=== PATIENT | female | born 1985 | race Caucasian/White ===

== ENCOUNTER → 2017-02-26 | Outpatient (CLI) | payer OTHER ==
[~2017-02-26] MED LIST: PRENTAB26 PO
[2017-02-26 11:11] LABS: MANUAL MICROSCOPIC REQUIRED? NO; REVIEW REQ? NO; URINE APPEARANCE CLOUDY (CLEAR); URINE BILIRUBIN NEG (NEG); URINE COLOR YELLOW; URINE EPITHELIAL CELL AUTO >30 /lpf (0-5); URINE NITRITE POS (NEG); URINE SPECIFIC GRAVITY 1.019 (1.000-1.030); UROBILINOGEN NEG (NEG)
== END | disposition home or self-care (01) ==
LOC: C.LABSPEC 10:42
PROVIDERS: ATTEND Obstetrics & Gynecology
DX: O09.291 Supervision of pregnancy with other poor reproductive or obstetric history, first trimester (principal); Z3A.00 Weeks of gestation of pregnancy not specified

== ENCOUNTER → 2017-02-27 | Outpatient (CLI) | payer OTHER ==
[2017-02-27 12:40] LABS: BASO % 0.3 %; BASO ABS # 0.02 K/uL (0-0.2); COMPLETE YES; EOS % 0.4 %; HEMATOCRIT 37.4 % (37-47); IG% 0.3 %; LYMPH % 20.2 %; LYMPH ABS # 1.58 K/uL (1.2-3.4); MEAN CELL VOLUME 88.2 fL (80-100); MEAN CORPUSCULAR HEMOGLOBIN 30.9 pg (25-34); MEAN PLATELET VOLUME 10.2 fL (7.4-10.4); NEUT % 70.8 %; PLATELET COUNT 267 K/uL (130-400); RED BLOOD COUNT 4.24 M/uL (4.2-5.4); WHITE BLOOD COUNT 7.84 K/uL (4.8-10.8)
[2017-03-04 00:44] LABS: CHLAMYDIA TRACH RNA*** NOT DETECTED (NOT DETECTED); GC (NEIS GONORRHOEAE)RNA** NOT DETECTED (NOT DETECTED)
== END | disposition home or self-care (01) ==
LOC: C.LAB1850 10:50
PROVIDERS: ATTEND Obstetrics & Gynecology
DX: O09.291 Supervision of pregnancy with other poor reproductive or obstetric history, first trimester (principal)

== ENCOUNTER → 2017-02-27 | Outpatient (CLI) | payer OTHER | END | disposition home or self-care (01) | LOC: C.PAPS 14:40 | PROVIDERS: ATTEND Obstetrics & Gynecology | DX: O09.291 Supervision of pregnancy with other poor reproductive or obstetric history, first trimester (principal) ==

== ENCOUNTER → 2017-03-19 | Outpatient (CLI) | payer OTHER | END | disposition home or self-care (01) | LOC: C.LAB1850 12:14 | PROVIDERS: ATTEND Obstetrics & Gynecology | DX: O23.41 Unspecified infection of urinary tract in pregnancy, first trimester (principal); Z3A.00 Weeks of gestation of pregnancy not specified ==

== ENCOUNTER → 2017-04-23 | Outpatient (CLI) | payer OTHER ==
[2017-04-23 14:07] LABS: GTGD 50 Grams
== END | disposition home or self-care (01) ==
LOC: C.LAB1850 12:06
PROVIDERS: ATTEND Obstetrics & Gynecology
DX: O09.292 Supervision of pregnancy with other poor reproductive or obstetric history, second trimester (principal)

== ENCOUNTER → 2017-07-23 | Outpatient (CLI) | payer OTHER ==
[2017-07-23 13:09] LABS: HEMOGLOBIN 10.6 g/dL (12.0-16.0)
== END | disposition home or self-care (01) ==
LOC: C.LAB1850 11:44
PROVIDERS: ATTEND Obstetrics & Gynecology
DX: O09.293 Supervision of pregnancy with other poor reproductive or obstetric history, third trimester (principal)

== ENCOUNTER → 2017-08-07 | Outpatient (CLI) | payer OTHER | END | disposition home or self-care (01) | LOC: C.LAB1850 07:05 | PROVIDERS: ATTEND Obstetrics & Gynecology | DX: O28.1 Abnormal biochemical finding on antenatal screening of mother (principal) ==

== ENCOUNTER → 2017-09-18 | Outpatient (CLI) | payer OTHER | END | disposition home or self-care (01) | LOC: C.LABSPEC 11:17 | PROVIDERS: ATTEND Obstetrics & Gynecology | DX: O09.293 Supervision of pregnancy with other poor reproductive or obstetric history, third trimester (principal); Z3A.00 Weeks of gestation of pregnancy not specified ==

== ENCOUNTER 2017-09-30 20:45 | Inpatient (IN) | payer OTHER ==
[~2017-09-30] VITALS: Ht 162.6 cm; Wt 102.1 kg
[2017-09-30] MEDS ORDERED: LACTATED RINGER'S 1000ML 1,000 ML IV PRN (21:03)
[2017-09-30 21:18] VITALS: Ht 162.6 cm; Wt 102.1 kg
[2017-09-30] MEDS ORDERED: EpHEDrine SULFATE INJ 50 MG/ML AMP ONE (21:21)
[2017-09-30] MEDS ORDERED: BUPIVACAINE 0.25% 30 ML VIAL ONE (21:21)
[2017-09-30] MEDS ORDERED: FENTANYL CITRATE INJ 50 MCG/1 ML 2 ML VIAL ONE (21:21)
[2017-09-30] MEDS ORDERED: FENTANYL 2MCG/ML ROPIV 1.25MG/ML 100ML BAG ONE (21:22)
[2017-09-30 21:31] LABS: HEMATOCRIT 31.5 % (37-47); HEMOGLOBIN 10.8 g/dL (12.0-16.0); MEAN CELL VOLUME 84.7 fL (80-100); MEAN CORPUSCULAR HGB CONC 34.3 g/dl (32-36); MEAN PLATELET VOLUME 10.8 fL (7.4-10.4); PLATELET COUNT 196 K/uL (130-400); RED CELL DISTRIBUTION WIDTH CV 13.5 % (11.5-14.5); RED CELL DISTRIBUTION WIDTH SD 41.1 fL (36.4-46.3); WHITE BLOOD COUNT 11.97 K/uL (4.8-10.8)
[2017-09-30] MEDS: LACTATED RINGER'S 1000ML 1,000 ML IV SCH ×2 (21:40→22:45)
[2017-09-30] MEDS ORDERED: LACTATED RINGER'S 1000ML 500 ML IV PRN (23:15)
[2017-09-30] MEDS ORDERED: FENTANYL 2MCG/ML ROPIV 1.25MG/ML 100ML BAG EPI PRN (23:15)
[2017-09-30] MEDS ORDERED: EpHEDrine SULFATE INJ 50 MG/ML AMP IV PRN (23:15)
[2017-09-30] MEDS ORDERED: NALOXONE HCL INJ 1 MG in SODIUM CHLORIDE 0.9% 1000ML 1,000 ML IV PRN (23:15)
[2017-09-30] MEDS ORDERED: NALBUPHINE HCL INJ 10 MG/ML AMP IV PRN (23:15)
[2017-09-30] MEDS ORDERED: DiphenhydrAMINE HCL 50 MG/ML VIAL IV PRN (23:15)
[2017-09-30] MEDS ORDERED: NALOXONE HCL INJ 0.4 MG/1 ML VIAL/CARP IV PRN (23:15)
[2017-09-30] MEDS ORDERED: ONDANSETRON INJ 2 MG/ML 2 ML VIAL IV PRN (23:15)
[2017-10-01] MEDS ORDERED: OXYTOCIN 30 UNITS/500ML NSS IV ONE (02:13)
[2017-10-01] MEDS ORDERED: HYDROCORTISONE ACETATE 25 MG SUPP PR PRN (03:00)
[2017-10-01] MEDS ORDERED: OXYTOCIN 30 UNITS/500ML NSS IV PRN (03:00)
[2017-10-01] MEDS ORDERED: OXYCODONE/ACETAMINOPHEN 5-325 TAB PO PRN (03:00)
[2017-10-01] MEDS ORDERED: BENZOCAINE 20% AER SPR 82.5 GM CAN EXT PRN (03:00)
[2017-10-01] MEDS ORDERED: DIPHTHERIA/TETANUS/PERTUSSIS 0.5 ML SYR/VIAL IM. ONE (03:00)
[2017-10-01] MEDS ORDERED: SUPERCREAM 0.870 % 15GM JAR EXT PRN (03:00)
[2017-10-01] MEDS ORDERED: ACETAMINOPHEN/CODEINE 300/30MG TAB PO PRN ×2 (03:00)
[2017-10-01] MEDS ORDERED: ACETAMINOPHEN 325 MG TAB PO PRN (03:00)
[2017-10-01] MEDS ORDERED: LANOLIN OINT EXT PRN (03:00)
--- NOTE | 2017-10-01 03:35 | Anesthesia Procedure Note ---
Anesthesia Epidural Removal Nt Date & Time October 01, 2017 at 03:34 Vital Signs Pain Intensity: 2 Notes Mental Status: alert / awake / arousable, participated in evaluation Nausea / Vomiting: adequately controlled Pain: adequately controlled Airway Patency, RR, SpO2: stable & adequate BP & HR: stable & adequate Hydration State: stable & adequate Neuraxial Anesthesia: was administered Anesthetic Complications: no major complications apparent, pt satisfied with anesthetic care Epidural: removed without complications, with tip intact
[2017-10-01 05:20] VITALS: BP 141/81; PULSE 90; TEMP 36.8; O2SAT 99
[2017-10-01] MEDS: IBUPROFEN 600 MG TAB PO PRN ×3 (05:27→17:41)
--- NOTE | 2017-10-01 06:04 | DELIVERY SUMMARY ---
DATE OF OPERATION: 10/01/2017 VAGINAL DELIVERY NOTE Trisha presented to labor and delivery in active labor. She was 38 weeks and 4 days, first baby, group B strep negative. She requested epidural and received this. Heart tracing was category 1 with occasional episodes of variable decels. She progressed to anterior lip and was uncomfortable and wished to push. She descended the baby well with pushing. Upon pushing, she was having deep decelerations and these did not improve with oxygen or repositioning or even stopping pushing. At this stage, the baby was +2 cm and I offered the patient vacuum delivery. She accepted, discussed risks and benefits. Bladder was drained for minimal urine. Position was KEMAR, +2 cm. Baby was known to be large, but at 38 weeks and 4, I do not think at this stage there was any evidence of cephalopelvic disproportion. Vacuum was applied and pulled for a total of 2 contractions with 1 popoff. Baby's head was delivered. A small midline episiotomy was made as well. The anterior shoulder was released from the symphysis pubis by Dillan maneuver and suprapubic pressure and gentle downward pressure on the back aspect of the shoulder. Once the shoulder released, gentle traction was used. No excessive force. Baby was a male. Cord clamped and cut. Cord gasses obtained. After some brief resuscitation, baby became vigorous. Cord gas was sent. Cord blood sent. Placenta removed with gentle traction. IV Pitocin started. Midline episiotomy repaired with 3-0 Vicryl. There was no extension. Rectal exam negative for sutures or defects. Estimated blood loss 300 mL. Sponge and instrument counts correct. In summary, vacuum delivery for a nonreassuring heart rate tracing. I attest to the content of the Intraoperative Record and any orders documented therein. Any exception s are noted below.
--- NOTE | 2017-10-01 07:00 | Discharge Instructions ---
Discharge Instructions Date of Service October 01, 2017. Admission Reason for Admission: LABOR Discharge Discharge Diagnosis / Problem: Vaginal Delivery Discharge Goals Goal(s): Routine recovery after delivery Medications Continue Dispensed Medications: supercream, dermaplast, tucks, lansinoh Activity Recommendations Activity Limitations: per Instructions/Follow-up section . Current Hospital Diet Patient's current hospital diet: Regular OB Diet Discharge Diet Recommended Diet: Regular Diet Pending Studies Studies pending at discharge: no Medical Emergencies . Who to Call and When: Medical Emergencies: If at any time you feel your situation is an emergency, please call 911 immediately. . Non-Emergent Contact Non-Emergency issues call your: Primary Care Provider . . "Provider Documentation" section prepared by Dee Hugo. .
[2017-10-01] MEDS: DOCUSATE SODIUM 100 MG CAP PO SCH ×2 (07:48→19:52)
[2017-10-01] MEDS: PRENATAL VITAMIN TAB PO SCH (07:48)
[2017-10-01 07:55] VITALS: BP 134/82; PULSE 91; TEMP 36.6
[2017-10-01 12:00] VITALS: BP 132/75; PULSE 86; TEMP 36.5
[2017-10-01 15:30] VITALS: BP 110/69; PULSE 92; TEMP 36.9; O2SAT 100
[2017-10-01 19:55] VITALS: BP 119/77; PULSE 101; TEMP 36.7; O2SAT 99
[2017-10-02] VITALS: BP 116/77; PULSE 91; TEMP 36.6; O2SAT 98
[2017-10-02] MEDS: IBUPROFEN 600 MG TAB PO PRN ×3 (02:20→21:11)
--- NOTE | 2017-10-02 06:20 | Progress Note ---
Subjective October 02, 2017. Subjective conversation w/ patient Ambulation: ambulating normally Voiding: no voiding problems Diet Tolerance: Regular Diet Lochia: Moderate Feeding Type: Breast Feeding Pain: Minimal pain reported Review of Systems Constitutional: No fever Respiratory: No shortness of breath Cardiac: No chest pain Abdomen: No nausea, No vomiting Objective Vital Signs Date Time Temp Pulse Resp B/P (MAP) Pulse Ox O2 Delivery O2 Flow Rate FiO2 10/02/17 00:00 36.6 91 16 116/77 (90) 98 Room Air 10/02/17 00:00 98 Room Air 10/01/17 19:55 36.7 101 18 119/77 (91) 99 Room Air 10/01/17 15:30 100 Room Air 10/01/17 15:30 36.9 92 18 110/69 (83) 100 Room Air 10/01/17 12:00 36.5 86 16 132/75 (94) Room Air 10/01/17 07:55 Room Air 10/01/17 07:55 36.6 91 20 134/82 (99) Room Air Physical Exam General Appearance: WELL-APPEARING, WD/WN, NO APPARENT DISTRESS Respiratory/Chest: lungs clear, normal breath sounds Cardiovascular: regular rate, rhythm Abdomen: soft Fundus: Firm, Non-Tender, Relation to Umbilicus (at u) Extremities: no calf tenderness, + pedal edema Laboratory Results Last 24 Hours Test 10/02/17 04:44 Assessment and Plan Post- Day#: 1 Continue Routine Care: 32F s/p NVD day 1 - O+, Rubella Immune, GBS -ve - pt doing well clinically - Vital signs reviewed and WNL - Encourage ambulation, monitor and control pain with Motrin PRN - Encourage breast feeding Resident Physician Supervision Note: I was present with Dr. Hugo during the history and exam. I discussed the case with the resident and agree with the findings and plan as documented in the note. Any exceptions or clarifications are listed here: PPD#1 doing well, continue routine care. Documented By: Jena Chicas Resident Tracking Resident Involvement: Resident Care Provided Care Provided: OB Delivery
[2017-10-02 07:02] LABS: HEMATOCRIT 24.3 % (37-47); HEMOGLOBIN 8.1 g/dL (12.0-16.0)
[2017-10-02 07:56] VITALS: BP 137/83; PULSE 89; TEMP 36.6; O2SAT 98
[2017-10-02] MEDS: PRENATAL VITAMIN TAB PO SCH (08:02)
[2017-10-02] MEDS: DOCUSATE SODIUM 100 MG CAP PO SCH ×2 (08:02→20:22)
[2017-10-02 17:00] VITALS: BP 121/77; PULSE 92
[2017-10-02] MEDS ORDERED: BISACODYL 5 MG TABEC PO SCH (20:00)
[2017-10-03 00:40] VITALS: BP 128/84; PULSE 92; TEMP 36.7
[2017-10-03] MEDS: IBUPROFEN 600 MG TAB PO PRN ×3 (00:52→12:57)
--- NOTE | 2017-10-03 06:26 | Progress Note ---
Subjective October 03, 2017. Subjective conversation w/ patient Ambulation: ambulating normally Voiding: no voiding problems Diet Tolerance: Regular Diet Lochia: Small Feeding Type: Breast Feeding Pain: 3/10 crampy pain in lower abdomen, improved with analgesia Review of Systems Constitutional: No fever, No chills Respiratory: No shortness of breath Cardiac: No chest pain Abdomen: No nausea, No vomiting Objective Vital Signs Date Time Temp Pulse Resp B/P (MAP) Pulse Ox O2 Delivery O2 Flow Rate FiO2 10/03/17 00:40 36.7 92 20 128/84 (99) Room Air 10/03/17 00:40 Room Air 10/02/17 17:00 Room Air 10/02/17 17:00 92 18 121/77 (92) Room Air 10/02/17 08:30 Room Air 10/02/17 07:56 36.6 89 18 137/83 (101) 98 Room Air Physical Exam General Appearance: WELL-APPEARING, WD/WN, NO APPARENT DISTRESS Respiratory/Chest: lungs clear, normal breath sounds Cardiovascular: regular rate, rhythm Abdomen: soft Fundus: Firm, Non-Tender, Relation to Umbilicus (at u) Extremities: no calf tenderness, + pedal edema Laboratory Results Last 24 Hours Test 10/03/17 04:44 Assessment and Plan Post- Day#: 2 Continue Routine Care: 32F s/p NVD day 2 - O+, Rubella Immune, GBS -ve - pt doing well clinically - Vital signs reviewed and WNL - Hgb reviewed -> 10.8 -> 8.1 - Encourage ambulation, monitor and control pain with Motrin PRN - pt ready for d/c today and will be counselled on d/c instructions Resident Physician Supervision Note: I interviewed and examined the patient. Discussed with Dr. Hugo and agree with findings and plan as documented in the note. Any exceptions or clarifications are listed here: D/C instructions reviewed patient, f/u in 6 weeks Documented By: Luan Moreno Resident Tracking Resident Involvement: Resident Care Provided Care Provided: OB Delivery
[2017-10-03] MEDS ORDERED: BISACODYL 10 MG SUPP PR PRN (07:00)
[2017-10-03 07:28] VITALS: BP 131/89; PULSE 86; TEMP 36.6; O2SAT 98
[2017-10-03 07:30] VITALS: BP 131/89; PULSE 86; TEMP 36.6; O2SAT 98
[2017-10-03] MEDS: PRENATAL VITAMIN TAB PO SCH (08:12)
[2017-10-03] MEDS: DOCUSATE SODIUM 100 MG CAP PO SCH (08:12)
[2017-10-03 08:33] LABS: HEMOGLOBIN 8.5 g/dL (12.0-16.0); MEAN CELL VOLUME 85.6 fL (80-100); MEAN CORPUSCULAR HEMOGLOBIN 29.1 pg (25-34); MEAN PLATELET VOLUME 10.5 fL (7.4-10.4); PLATELET COUNT 207 K/uL (130-400); RED CELL DISTRIBUTION WIDTH CV 13.8 % (11.5-14.5); RED CELL DISTRIBUTION WIDTH SD 43.1 fL (36.4-46.3); WHITE BLOOD COUNT 11.16 K/uL (4.8-10.8)
--- NOTE | 2017-10-03 14:14 | Discharge Instructions ---
Discharge Instructions Date of Service October 03, 2017. Admission Reason for Admission: LABOR Discharge Discharge Diagnosis / Problem: Vaginal Delivery Discharge Goals Goal(s): Routine recovery after delivery Medications Continue Dispensed Medications: supercream, dermaplast, tucks, lansinoh Activity Recommendations Activity Limitations: per Instructions/Follow-up section . Instructions / Follow-Up Instructions / Follow-Up ACTIVITY RECOMMENDATIONS: * Gradual return to full activity over the next 2-3 weeks. * No lifting - nothing heavier than baby over the next 2-3 weeks. * Do not engage in vigorous exercise, sexual activity or sports until cleared by your physician. * Do not drive or operate any motorized equipment until cleared by your physician. * You may shower/bathe daily. MEDICATIONS: For discomfort or pain, you may use Acetaminophen (Tylenol), Ibuprofen (Advil), or Naproxen (Aleve) following the package directions. For constipation you may use Colace following the package directions. BREAST CARE: If you are not breast feeding: * Wear a supportive bra 24 hours a day for one to two weeks. * Avoid stimulating your breasts and nipples as much as possible during the first few weeks after delivery. * When taking a shower, have the warm water hit your back, not breasts. * When your breasts feel full, apply ice packs. Usually three to four times a day helps ease the discomfort. * Take a mild pain medication (Tylenol / Motrin) when you are uncomfortable. If breast feeding: * Use breast milk to lubricate nipples. Lansinoh cream may be used for sore nipples. You do not need to remove cream prior to breast feeding. If using a different brand of cream, check the label for directions regarding removal of cream prior to nursing. * Wear a supportive bra. * If having problems with breasts or breast feeding, call a [employer] tre[employer] consultant or your health care provider. EPISIOTOMY CARE: After delivery, if you have an episiotomy (stitches), the following steps will ease discomfort and aid healing. * For the first 24 hours after delivery, place ice packs next to your episiotomy to help reduce swelling. * After the first 24 hour-period, sitz baths, either portable or in the tub, are suggested. A shower with a shower arm sprayed over the episiotomy may be comforting. * Prema care should be done after each voiding and bowel movement. Squirt warm water from a plastic bottle over the perineum (region of the body between the anus and urinary opening) and pat dry. * Use Dermoplast to ease discomfort. Shake container. [place] directly over the episiotomy. Place a Tucks on a clean sanitary pad next to your episiotomy. SPECIAL CARE INSTRUCTIONS: When you are discharged from the hospital, it is important for you to follow the instructions listed below: * During the first week at home, you should be able to care for yourself and your baby. In addition, the usual light household activities are encouraged. * Limit your activities to the way you feel. Do not try to clean the house or move furniture. Be sensible. * If you actively engage in sports and have done so up until the time of your delivery, you may resume these activities as soon as you feel able. This may take up to one month or even longer. Use good judgment. * Continue to take your vitamins for at least six weeks after the of your baby. * Your diet need not be limited unless you were on a special diet before your delivery. Breast-feeding mothers need around 2500 calories per day and at least 64-80 ounces of fluid per day (8 to 10 glasses). * You should eat foods from the four major food groups. Crash diets or fad diets are to be avoided. Eating lean meats, fresh fruits and vegetables, low-fat dairy products, high fiber foods and a regular exercise program, will help you get back to your pre- weight without putting your health at risk. * Constipation is sometimes a problem after delivery. Take a mild laxative as needed. If breast feeding, Milk of Magnesia is acceptable to use. You may use a suppository or Fleets enema if no episiotomy. * A daily shower or tub bath is suggested. Be sure to thoroughly and gently dry the perineum. * A bloody vaginal discharge will usually continue until around four weeks post . A small amount of bleeding may continue for as long as six weeks. Vaginal discharge changes from the bright red bleeding after delivery to pink then brownish and finally yellowish-pink before becoming white and disappearing. * Bleeding may increase with activity. Your first period may come in 4-8 weeks. If you are breast feeding, your period may be delayed even longer. * Storla (sex) can begin whenever both you and your partner feel comfortable and do not have any form of genital infection. It is recommended that you wait at least six weeks for internal and external healing to occur. If you have questions, please talk to your health care practitioner. A condom should be used to prevent infection and . * Foreplay, gentle intercourse and lubrication is very important the first several times to prevent pain. A water-based lubricant such as K-Y jelly or Astroglide may be used. * If you have RH negative blood and your baby is RH positive, you will receive RHOGAM by injection prior to discharge. The nurse will give you a card to keep with you that has the date and place that you received RHOGAM after delivery. * During your care, you had a Rubella screen done to check for the presence of rubella antibodies in your blood. If your test was negative, you will receive a Rubella vaccine prior to discharge. This vaccine may cause a fever, soreness at the injection site and flu-like symptoms. If these symptoms persist, notify your health care practitioner. is not advised for one month after a Rubella vaccine. * Verbalizes understanding of car seat law as reviewed with patient nursing. * Car Seat hand-out given and reviewed with patient by nursing. * Shaken baby information reviewed with patient by nursing. Call you doctor if: * Heavy bleeding (saturating several pads an hour) or passing clots the size of your fist. * A fever >101 degrees F (38.3 degrees C) on two occasions four hours apart and /or chills. * Unusual pain in the pelvic or vaginal areas. * "Baby Blues" lasting longer than two weeks. If you have any questions or concerns, call your health care practitioner at . FOLLOW UP VISIT: * Please call the office at to schedule a 6 week examination. It is important you keep this appointment. It is important for you to make arrangements for either yearly or twice yearly check-ups thereafter. Current Hospital Diet Patient's current hospital diet: Regular OB Diet Discharge Diet Recommended Diet: Regular Diet Pending Studies Studies pending at discharge: no Medical Emergencies . Who to Call and When: Medical Emergencies: If at any time you feel your situation is an emergency, please call [phone] immediately. . Non-Emergent Contact Non-Emergency issues call your: Primary Care Provider . . "Provider Documentation" section prepared by Dee Hugo. .
[2017-10-03 15:04] VITALS: BP_DIAS 89; PULSE 86; TEMP 36.6
== END 2017-10-03 15:14 | disposition home or self-care (01) | DRG 775 ==
LOC: C.LD 20:45 → C.OPB 20:45 → C.LD 10-01 02:30 → C.OBG 10-01 05:31
PROVIDERS: ADMIT Obstetrics & Gynecology; ATTEND Obstetrics & Gynecology
PROC: 0W8NXZZ Division of Female Perineum, External Approach (ICD-10-PCS; principal; 2017-10-01)
PROC: 10D07Z6 Extraction of Products of Conception, Vacuum, Via Natural or Artificial Opening (ICD-10-PCS; principal; 2017-10-01)
DX: O66.0 Obstructed labor due to shoulder dystocia (principal); Z37.0 Single live birth; Z3A.38 38 weeks gestation of pregnancy

== ENCOUNTER 2022-07-11 07:56 | Inpatient (IN) ==
[2022-07-11] MEDS ORDERED: OXYTOCIN 30 UNITS/500 ML BAG IV PRN ×3 (08:02→16:26)
[2022-07-11] MEDS ORDERED: LIDOCAINE 1% LOCAL 20 ML VIAL INFIL PRN (08:02)
--- NOTE | 2022-07-11 08:05 | History & Physical Report ---
Date of Service July 11, 2022 Assessment & Plan (1) IUGR (intrauterine growth restriction) affecting care of mother: (2) Elective induction of labor planned: Plan fetus category one. Plan pit induction, arom as indicated. epidural if desires. anticipate . Admission and Anticipated Discharge Date Admission Date: July 11, 2022 History of Present Illness Chief Complaint: iol Primary Care Provider: Nicole Jackson Patient is a 37yowf with iup at 38 2/7 weeks who presents for induction for IUGR. Patient notes good fm. rare contraction, no lof/vb. IUGR diagnosed initially at 20 week ultrasound and confirmed at 24 weeks, mfm consult at 27 weeks for plan as noted below. Normal echo. and Delivery Plans Hx Shoulder Dystocia -consider eIOL AMA Weekly NST's @ 36 weeks IUGR *Twice weekly NST/DVP@Dx *Weeklyl doppler@Dx *Growth US Q4wk @Dx *Deliver [id number] (unless abnml flow) *Deliver 37wks (less than 3rd%) [place] [facility] [place] [facility] [place] - WNL Gestational Diabetes Growth u/s's q 4 weeks Induction 07/11 OB Labs: Blood Type O Positive 12/21/21 Antibody Screen NEGATIVE 12/21/21 Hemoglobin 11.1 g/dl (12.0-16.0) L 05/10/22 Hematocrit 32.6 % (34.1-44.9) L 05/10/22 Mean Corpuscular Volume 88.2 fL (80.0-100.0) 12/21/21 Platelet Count 274 K/uL (130-400) 12/21/21 Rubella IgG Antibody Immune (Immune) 12/21/21 Rapid Plasma Reagin Nonreactive (Nonreactive) 12/21/21 Hepatitis B Surface Antigen NEG (NEG) 02/27/17 Hepatitis B Surface Antigen. NON-REACTIVE (NON-REACTIVE) 12/21/21 Hepatitis C Antibody (EIA) NON-REACTIVE (NON-REACTIVE) 12/21/21 HIV (1&2) Ab and P24 Ag, 4th Gener NEG (NEG) 02/27/17 HIV (1&2) Ag and Ab Confirmation NON-REACTIVE (NON-REACTIVE) 12/21/21 Glucose 1 Hour 50 gm Load 144 mg/dl (70-130) H 05/10/22 OB Optional Labs: Chlamydia trachomatis RNA NOT DETECTED (NOT DETECTED) 12/21/21 Neisseria gonorrhoeae RNA NOT DETECTED (NOT DETECTED) 12/21/21 Labs Reviewed: Declines cf/sma/cfdna--mln -declines quad/afp - sln gbs negative Allergies Allergy/AdvReac Type Severity Reaction Status Date / Time No Known Allergies Allergy Verified 07/10/22 10:50 Home Medications Medication Instructions Recorded Confirmed Type prenat.vits,martín,[id number] 1 tab PO DAILY 12/21/21 07/10/22 History breast pump #1 ea 05/31/22 07/10/22 Rx Patient History Medical History Hx of migraines Kidney stone x1 Miscarriage Varicella vaccination Surgical History S/P wisdom tooth extraction Family History Aunt Breast cancer Ovarian cancer Father Non-Hodgkin lymphoma Leukemia Bladder cancer Denies family history of Colorectal cancer Social History Smoking Status: Former smoker Preferred Language: Macedonian Communication Ability: Effective Marketing Programs Specialist Required: No Beliefs That Will Affect Care: None marital status: marital status details: John Palmer (30) [phone] Current Living Situation: Spouse Current Living Situation Comment: - John, Son- Juan current occupational status: employed current occupation: self employed hairdresser Other Information That Helps Us Care for You: No Assistive Devices: Glasses OB History Past Pregnancies Del. Date GA wks Lbr Lgth wt Sex Type del Anes Place Del Prov ? Comment 07/05/15 Aborted-Spontaneous 10/01/17 38 8 8-13 M Epid ural [facility] Dr. Jamie Black [employer] History noncontributory Physical Exam Constitutional: WD/WN, vitals as above Cardiovascular: Extremities: + edema (tr); no calf tenderness Gastrointestinal (Abdomen): soft, nt, gravid Psychiatric: A+Ox3, euthymic affect Genitourinary: cx--/-2 toco--mics efm--140s wtih mod variability, accels to 160s, no decels Coding Level of Care Code None Diagnoses IUGR (intrauterine growth restriction) affecting care of mother O36.5990 Elective induction of labor planned
[2022-07-11 08:37] LABS: Hematocrit (blood only) 31.4 % (37.0-47.0); Hemoglobin 10.9 g/dl (12.0-16.0); Mean Corpuscular Hemoglobin 28.9 pg (25.0-34.0); Mean Corpuscular Hgb Conc 34.7 g/dL (32.0-36.0); Mean Corpuscular Volume 83.3 fL (80.0-100.0); Mean Platelet Volume 10.6 fL (9.4-12.4); Platelet Count 218 K/uL (130-400); RDW Standard Deviation 39.7 fL (36.4-46.3); Red Blood Count 3.77 M/uL (4.20-5.40); White Blood Count 7.53 K/ul (4.8-10.8)
[2022-07-11] MEDS: LACTATED RINGER'S 1,000 ML IV PRN ×3 (08:44→15:19)
[2022-07-11] MEDS ORDERED: LIDOCAINE 2%/EPINEPHRINE 1:200,000 20 ML SDV ONE (13:29)
[2022-07-11] MEDS ORDERED: SODIUM CHLORIDE 0.9% INJ 10 ML VIAL ONE (13:29)
[2022-07-11] MEDS ORDERED: ePHEDrine sulfate 50 MG/ML AMP ONE (13:29)
[2022-07-11] MEDS ORDERED: BUPIVACAINE 0.25% 30 ML VIAL ONE (13:29)
--- NOTE | 2022-07-11 13:35 | Labor Progress Brief Note ---
Date of Service July 11, 2022 Subjective Reason For Note: Routine Evaluation Assessment & Plan (1) Gestational diabetes mellitus (GDM) affecting , antepartum: Plan: Progressing. AROM clr. Continue Pitocin. Vital normal (2) IUGR (intrauterine growth restriction) affecting care of mother: (3) Supervision of elderly multigravida: Admission and Anticipated Discharge Date Admission Date: July 11, 2022 Physical Exam Genitourinary: Manual OB Exam: + cervical dilation 2 cm, + cervical effacement 50%, + station -2 and + amniotic fluid clear OB Exam Monitor Tracing: + external FHT monitor used, + external uterine monitor used, + category I and + normal FHT variability; no early decelerations present, no late decelerations present and no variable decelerations Results & Data ([facility]) Vital Signs (Past 12 Hours) Vital Signs Temp Pulse Resp BP 07/11/22 13:25 95 H 137/63 07/11/22 13:08 93 H 118/71 07/11/22 12:53 95 H 133/83 07/11/22 12:30 16 07/11/22 12:30 36.9 C 16 07/11/22 12:38 86 120/62 07/11/22 12:24 90 122/63 07/11/22 12:09 85 123/69 07/11/22 11:52 81 122/62 07/11/22 11:37 92 H 121/63 07/11/22 11:24 88 123/65 07/11/22 11:09 88 136/62 07/11/22 10:52 90 124/65 07/11/22 10:39 85 129/65 07/11/22 10:24 91 H 118/68 07/11/22 10:07 92 H 113/66 07/11/22 09:53 89 120/72 07/11/22 09:38 94 H 120/71 07/11/22 09:22 93 H 118/62 07/11/22 09:08 92 H 130/61 07/11/22 08:54 110 H 140/63 07/11/22 08:25 93 H 130/73 07/11/22 08:10 36.7 C 16 Coding Level of Care Code None Diagnoses Gestational diabetes mellitus (GDM) affecting , antepartum O24.419 IUGR (intrauterine growth restriction) affecting care of mother O36.5990 Supervision of elderly multigravida O09.529
[2022-07-11] MEDS ORDERED: ePHEDrine sulfate 50 MG/ML AMP IV PRN (14:54)
[2022-07-11] MEDS ORDERED: fentaNYL 2MCG/ML ROPIVACAINE 1.25MG/ML 100 ML BAG EPI PRN (14:54)
[2022-07-11] MEDS ORDERED: diphenhydrAMINE 50 MG/ML VIAL IV PRN (14:54)
[2022-07-11] MEDS ORDERED: NALBUPHINE HCL INJ 10 MG/ML AMP IV PRN (14:54)
[2022-07-11] MEDS ORDERED: NALOXONE HCL 0.4 MG/1 ML VIAL/CARP IV PRN (14:54)
[2022-07-11] MEDS ORDERED: NALOXONE HCL 1 MG in SODIUM CHLORIDE 0.9% 1000ML 1,000 ML IV PRN (14:54)
--- NOTE | 2022-07-11 14:54 | Anesthesiology Consultation ---
Date of Service July 11, 2022 Assessment & Plan (1) Encounter for pre-operative examination: Chart Review Chart Review: Patient NOT seen in Pre Admission Testing and Acceptable Risk for Labor Epidural Consults Requested none History Height/Weight Height: 5 ft 4 in Weight: 100.698 kg Allergies Allergy/AdvReac Type Severity Reaction Status Date / Time No Known Allergies Allergy Verified 07/10/22 10:50 Medications Home Medications Medication Instructions Recorded Confirmed Last Taken prenat.vits,martín,[id number]-zomte 1 tab PO DAILY 12/21/21 07/10/22 Unknown breast pump #1 ea 05/31/22 07/10/22 Unknown Active Medications Generic Name Dose Route Start Last Admin Trade Name Freq PRN Reason Stop Dose Admin Lactated Ringer's 1,000 mls @ 125 mls/hr 07/11/22 08:02 07/11/22 14:25 Lr IV 07/13/22 08:01 999 mls/hr .Q8H PRN Administration L&D Protocol Protocol Oxytocin 30 units in 500 mls @ 17 mls/hr 07/11/22 08:02 07/11/22 13:30 Pitocin IV 07/13/22 08:01 1.02 units/hr .Q24H PRN 17 mls/hr Labor Induction/Augmentation Titration Protocol 1.02 UNITS/HR Past Medical History Medical History Hx of migraines Kidney stone x1 Miscarriage Varicella vaccination Past Family History Family History Aunt Breast cancer Ovarian cancer Father Non-Hodgkin lymphoma Leukemia Bladder cancer Denies family history of Colorectal cancer Past Surgical History Surgical History S/P wisdom tooth extraction Social History Smoking Status: Never smoker Do You Dip or Chew Tobacco: No Hx Alcohol Use: No Hx Substance Use: No Physical Exam Vital Signs Last Vital Signs Temp 98.4 F 07/11/22 14:15 Pulse 88 07/11/22 14:37 Resp 20 07/11/22 14:15 BP 133/60 07/11/22 14:37 Testing Laboratory Results 07/11/22 08:16
[2022-07-11] MEDS: fentaNYL 2MCG/ML ROPIVACAINE 1.25MG/ML 100 ML BAG EPI ONE ×2 (15:10→15:16)
[2022-07-11] MEDS: fentaNYL citrate 100 MCG/2 ML VIAL ONE ×2 (15:13→15:16)
[2022-07-11] MEDS ORDERED: bisacodyL 10 MG SUPP PR PRN (16:26)
[2022-07-11] MEDS ORDERED: HYDROCORTISONE ACETATE 25 MG SUPP PR PRN (16:26)
[2022-07-11] MEDS ORDERED: DIPHTHERIA/TETANUS/PERTUSSIS 0.5mL SYR/VIAL (Age 7+yrs) IM ONE (16:26)
[2022-07-11] MEDS ORDERED: ACETAMINOPHEN 325 MG TAB PO PRN (16:26)
[2022-07-11] MEDS ORDERED: BENZOCAINE 20% AER SPR 82.5 GM CAN EXT PRN (16:26)
[2022-07-11] MEDS: DOCUSATE SODIUM 100 MG CAP PO SCH (20:49)
[2022-07-11] MEDS: IBUPROFEN 600 MG TAB PO PRN (21:02)
[2022-07-12] MEDS: IBUPROFEN 600 MG TAB PO PRN ×2 (03:38→08:08)
[2022-07-12 07:01] LABS: Hematocrit (blood only) 28.6 % (37.0-47.0); Hemoglobin 9.4 g/dl (12.0-16.0); Mean Corpuscular Hemoglobin 28.5 pg (25.0-34.0); Mean Corpuscular Hgb Conc 32.9 g/dL (32.0-36.0); Mean Corpuscular Volume 86.7 fL (80.0-100.0); Mean Platelet Volume 10.5 fL (9.4-12.4); Platelet Count 198 K/uL (130-400); RDW Standard Deviation 41.2 fL (36.4-46.3); White Blood Count 10.34 K/ul (4.8-10.8)
--- NOTE | 2022-07-12 07:17 | Obstetrical Progress Note ---
Date of Service July 12, 2022 Assessment & Plan (1) care following vaginal delivery: (2) Gestational diabetes mellitus (GDM) affecting , antepartum: (3) IUGR (intrauterine growth restriction) affecting care of mother: Plan -Feeling well overall. - Infant feeing going well. - Urinating and passing gas appropriately. - Ambulating well in the room. - Pain controlled with ibuprofen. - Hgb on 07/11 at admission was 10.9. Hgb for 07/12 PPD1 is 9.4 - Vitals stable, WNL. Afebrile. - Routine care, progressing well. Anticipate discharge at 24-48 hours . - Plan for outpatient follow-up at 6 weeks . Admission and Anticipated Discharge Date Admission Date: July 11, 2022 Supervising Physician Co-Signing Physician Notes Patient seen and evaluated and agree with the above findings and plan. Stable for discharge James Rico is a 37 year old female who has a induced vaginal delivery on 07/11 at 38 3/7 weeks determined by US. Her was complicated by advanced maternal age, gestational diabetes, and IUGR. Trisha is doing great on day 1. She is able to ambulate well. She is able to void and pass gas normally. She is able to eat normally without nausea or vomiting. She is and pumping without issue. Her pain is currently at maximum 4/10 and is being managed by ibuprofen. She describes her current vaginal bleeding as moderate in amount. Review of Systems Review of Systems: Denies fever, chills, sweats. Denies dyspnea or pleuritic pain. Denies chest pain, palpitations, pressure. Denies breast pain. Denies dysuria. Denies headache or visual changes. Physical Exam Physical Exam: General:Alert, oriented. No acute distress. Cardiac: Regular rate and rhythm. No murmurs, rubs, gallops appreciated. Respiratory:Clear to auscultation bilaterally with no wheezes, rales, rhonchi. Normal work of breathing, symmetrical chest rise. Abdomen:Uterus 2cm inferior to umbilicus and firm. Abdomen is soft and non- tender with no masses appreciated. Lower extremities:No lower extremity edema. No deep calf pain. Results & Data ([facility]) Vital Signs (Past 12 Hours) Vital Signs Temp Pulse Pulse Resp BP BP Pulse Ox 07/12/22 03:45 36.7 C 85 20 126/77 99 07/11/22 23:15 36.7 C 74 20 118/76 99 07/11/22 19:10 36.9 C 109 H 20 130/82 98 07/11/22 18:25 36.9 C 18 07/11/22 18:28 97 H 125/57 L O2 Del Method 07/12/22 03:45 Room Air 07/11/22 23:15 Room Air 07/11/22 19:10 Room Air 07/11/22 18:25 07/11/22 18:28 Laboratory Results CBC 07/11/22 07/12/22 Range/Units 08:16 06:22 WBC 7.53 10.34 (4.8-10.8) K/ul RBC 3.77 L 3.30 L (4.20-5.40) M/uL Hgb 10.9 L 9.4 L (12.0-16.0) g/dl Hct 31.4 L 28.6 L (37.0-47.0) % Plt Count 218 198 (130-400) K/uL
--- NOTE | 2022-07-12 07:59 | Delivery Summary ---
DATE OF SERVICE: 07/12/2022. PROCEDURE: Normal spontaneous vaginal delivery with second-degree perineal laceration repair. SURGEON: Jon Wilson MD. PREOPERATIVE DIAGNOSES: 1. Single intrauterine at 38 weeks 2 days gestational age. 2. Intrauterine growth restriction. POSTOPERATIVE DIAGNOSES: 1. Single intrauterine at 38 weeks 2 days gestational age. 2. Intrauterine growth restriction. 3. Status post procedure. ESTIMATED BLOOD LOSS: 300 mL DRAINS: Straight cath at the completion of the case. URINE OUTPUT: Per straight cath. COMPLICATIONS: None. FINDINGS: Viable male with weight pending and Apgars of 8 and 9 at one and five minutes respectively. DESCRIPTION OF PROCEDURE: The patient progressed to 10 cm dilated, 100% effaced, positive 2 station, pushed over intact perineum with epidural anesthesia and delivered a viable male with weight and Apgars as noted above. Head of the delivered in KEMAR position, restituted right transverse. Body and shoulders quickly followed. was noted to be vigorous upon delivery and a 1 minute delayed cord clamping was initiated. Cord was then double clamped and cut. remained on the maternal abdomen. Cord blood was obtained. Attention was then turned to delivery of the placenta, which took approximately 28 minutes to deliver, but did deliver intact, 3-vessel cord, with gentle cord traction. On inspection of the perineum, vagina, cervix, there was noted to be a second-degree perineal laceration, which was repaired with 3-0 Vicryl in a traditional crown stitch. Needle, sponge, and instrument counts were correct at the completion of the case. Both mother and were stable in the immediate post-delivery period. Job ID: [id number] [facility]
[2022-07-12] MEDS ORDERED: PRENATAL VITAMIN 1 TAB PO SCH (08:00)
[2022-07-12] MEDS: DOCUSATE SODIUM 100 MG CAP PO SCH (08:08)
[2022-07-12] MEDS ORDERED: bisacodyL 5 MG TABEC PO SCH (20:00)
--- NOTE | 2022-07-17 06:44 | Anesthesia Procedure Note ---
Date of Service July 11, 2022 Anesthesia Post Epidural Note Vital Signs Vital Signs: Temp Pulse Resp BP Pulse Ox O2 Del Method 97.9 F 102 H 16 125/88 99 Room Air 07/12/22 16:00 07/12/22 16:00 07/12/22 16:00 07/12/22 16:00 07/12/22 16:00 07/12/22 16:00 Pain Intensity Abdomen: Pain Intensity: 7 Notes Mental Status: alert / awake / arousable and participated in evaluation Nausea / Vomiting: adequately controlled Pain: adequately controlled Airway Patency, RR, SpO2: stable & adequate BP & HR: stable & adequate Hydration State: stable & adequate Neuraxial Anesthesia: was administered and sensory block is resolving Anesthetic Complications: no major complications apparent and Pt Satisfied with anesthetic care Epidural: Removed without complications and With tip intact
== END 2022-07-12 17:05 | disposition home or self-care (01) | DRG 807 ==
LOC: 4S1 07:56 → 4E2 19:00